=== PATIENT | female | born 1930 | race Caucasian/White ===

== ENCOUNTER 2018-11-03 18:57 | Inpatient (IN) | payer OTHER ==
--- NOTE | 2018-11-03 20:18 | PDOC ---
History of Present Illness - General Chief Complaint: Chest Pain Stated Complaint: CHEST PAIN Time Seen by Provider: 11/03/18 19:38 - History of Present Illness Initial Comments: 11/03/18 21:49 88f with htn, arthritis and hld presenting with severe chest pain with radiation to the back between the shoulder blades that came suddenly while she was at home. Occasionally the pain makes it harder to breathe. Had similar symptoms in the past, had a negative cardiac workup: - deconditioned stress MIBI 02/01: poor exercise tolerance--walked [id number] on [employer]; no ischemia or injury) Stress Persantine MIBI 03/2011 (at [facility]): no myocardial ischemia; normal LVEF and wall motion by gated studies. She denies fever chills abdominal pain or dysuria. Denies active cancer, recent travel or hemoptysis. Did notice swelling of the right leg worse than the left, unsure when that appeared. 11/03/18 22:44 Past History - Past Medical History Allergies/Adverse Reactions: Allergies Allergy/AdvReac Type Severity Reaction Status Date / Time Penicillins Allergy Severe Difficulty Verified 01/15/16 00:52 Breathing Home Medications: Ambulatory Orders Amlodipine Besylate [Norvasc -] 2.5 mg PO DAILY 01/15/16 Lansoprazole [Prevacid] 30 mg PO DAILY 01/15/16 Lisinopril [Prinivil -] 40 mg PO DAILY 01/15/16 Metoprolol Succinate [Toprol Xl] 50 mg PO DAILY 01/15/16 Tramadol HCl 50 mg PO BID 01/15/16 Cardiac Disorders: Yes CHF: Yes (systolic and diastolic dysfuction) GI Disorders: Yes (GASTRITIS. HERNIA.) HTN: Yes - Family Disease History Family Disease History: Heart Disease: Mother (hypertension) - Immunization History Immunization Up to Date: Yes - Suicide/Smoking/Psychosocial Hx Smoking Status: No Smoking History: Never smoked Have you smoked in the past 12 months: No Number of Cigarettes Smoked Daily: 0 Hx Alcohol Use: No Drug/Substance Use Hx: No Substance Use Type: None Hx Substance Use Treatment: No Review of Systems - Review of Systems Able to Perform ROS?: Yes Is the patient limited Martiniquais proficient: No Constitutional: No: Symptoms Reported HEENTM: No: Symptoms Reported Respiratory: Yes: See HPI Cardiac (ROS): Yes: See HPI ABD/GI: No: Symptoms Reported : No: Symptoms Reported Integumentary: No: Symptoms Reported Neurological: No: Symptoms reported All Other Systems: Reviewed and Negative *Physical Exam - Vital Signs Last Vital Signs Temp Pulse Resp BP Pulse Ox 98.7 F 59 L 19 182/69 H 98 11/03/18 19:05 11/03/18 19:05 11/03/18 19:05 11/03/18 19:05 11/03/18 19:05 - Physical Exam General Appearance: Yes: Appropriately Dressed, Mild Distress, Obese HEENT: positive: EOMI, MEEK, Normal ENT Inspection Respiratory/Chest: positive: Lungs Clear, Normal Breath Sounds. negative: Chest Tender, Respiratory Distress Cardiovascular: positive: Regular Rhythm, S1, S2, Bradycardia Gastrointestinal/Abdominal: positive: Normal Bowel Sounds, Soft, Protuberent. negative: Tender Extremity: positive: Pedal Edema (Worse swelling over right leg, tender throughout the leg) Integumentary: positive: Normal Color, Dry, Warm Neurologic: positive: Fully Oriented, Alert, Normal Mood/Affect, Normal Response , Motor Strength 5/5 Heart Score/ECG Review - History History: Moderately suspicious - Electrocardiogram EKG: Normal - Age Age: >/= 65 - Risk Factors Risk Factors Heart Score: Yes Hx Hypertension, Yes Positive family hx of cardiac disease, Yes Hx Obesity Based on the list above the patient has:: >/=3 risk factors or Hx atherosclerotic disease - Troponin Troponin: </= normal limit - Score Heart Score - Total: 5 ED Treatment Course - LABORATORY CBC & Chemistry Diagram: 11/03/18 20:35 11/03/18 20:35 Medical Decision Making - Medical Decision Making 11/03/18 22:43 88F with severe tearing chest pain radiating to back, sob on/off and right leg swelling. Will obtain immediate CTA chest and abd/pelvis to r/o dissection. In addition, suspicion for DVT/PE that will be excluded qwith the CTA chest and will get Duplex U/S of the right leg. Will obtain labs and cardiac trops as well to r/o CO. EKG: sinus bradycardia with marked sinus arrhytmia. Left axis deviation. Cannot r/o anterior infarct, age undertermines. Vent rate 59, OH 182, QRS 84 QT/QTC 422/417 CTA read: 1. Study negative for thoracic/abdominal aortic dissection or aneurysm. No abnormalities of the pelvic arterial vessels identified either. 2. No CT evidence for pulmonary embolism. 3. Colonic diverticulosis. No CT evidence of diverticulitis. 4. Degenerative disc disease and degenerative changes throughout the thoracic and lumbar spine All labs wnl, except bnp elevated at 660 Will control htn with labetalol 1. Study negative for thoracic/abdominal aortic dissection or aneurysm. No abnormalities of the pelvic arterial vessels identified either. 2. No CT evidence for pulmonary embolism. 3. Colonic diverticulosis. No CT evidence of diverticulitis. 4. Degenerative disc disease and degenerative changes throughout the thoracic and lumbar spine 11/03/18 22:52 DVT study Negative for DVT 11/03/18 23:57 Will control BP with labetalol Heart score of 5. Will admit to tele obs *DC/Admit/Observation/Transfer Diagnosis at time of Disposition: Chest pain, CHF (congestive heart failure), Right leg swelling - Discharge Dispostion Decision to Admit order: Yes - Referrals - Patient Instructions - Post Discharge Activity
[2018-11-03 21:08] LABS: MEAN PLT VOLUME 9.3 fl (7.5-11.1); RBC 3.41 M/mm3 (3.60-5.2)
[2018-11-03 21:13] LABS: BASO % 1.2 % (0-2.0); EOS % 1.3 % (0-4.5); HEMATOCRIT 28.5 % (32.4-45.2); HEMOGLOBIN 9.1 GM/dL (10.7-15.3); LYMPH % 35.2 % (8-40); MCH 26.8 pg (25.7-33.7); MCHC 32.1 g/dl (32.0-36.0); MEAN CELL VOLUME 83.6 fl (80-96); MONO % 8.4 % (3.8-10.2); NEUT % 53.9 % (42.8-82.8); PLATELET COUNT 182 K/MM3 (134-434); RDW 15.3 % (11.6-15.6); WHITE BLOOD COUNT 6.2 K/mm3 (4.0-10.0)
[2018-11-03 21:20] LABS: INR 0.98 (0.83-1.09); PROTHROMBIN TIME (PATIENT) 11.6 SEC (9.7-13.0)
[2018-11-03 21:23] LABS: ACTIVATED PTT 31.2 SECONDS (25.2-36.5)
[2018-11-03 21:30] LABS: BILIRUBIN,TOTAL 0.3 mg/dL (0.2-1); BLOOD UREA NITROGEN 18.3 mg/dL (7-18); CALCIUM 9.8 mg/dL (8.5-10.1); CREATININE 0.9 mg/dL (0.55-1.3); N-TERMINAL BNP 655.9 pg/ml (5-450); POTASSIUM 4.2 mmol/L (3.5-5.1); TOT PROT 8.1 g/dl (6.4-8.2)
[2018-11-03 21:54] LABS: EPI CELLS 2.8 /HPF (0-5/HPF); HYALINE CASTS 0 /lpf (0-8); PH,URINE 6.5 (5.0-8.0); URINE APPEARANCE CLEAR; URINE BACTERIA 24.2 /hpf (NEGATIVE); URINE BILIRUBIN NEGATIVE (NEGATIVE); URINE COLOR YELLOW; URINE GLUCOSE (UA) NEGATIVE (NEGATIVE); URINE KETONE NEGATIVE (NEGATIVE); URINE LEUK ESTERASE 2+ (NEGATIVE); URINE NITRITE NEGATIVE (NEGATIVE); URINE PROTEIN NEGATIVE (NEGATIVE); URINE RBC 1 /hpf (0-4); URINE UROBILINOGEN 0.2 mg/dL (0.2-1.0); URINE WBC 3 /hpf (0-5)
[2018-11-03] MEDS ORDERED: FUROSEMIDE 40 MG/4 ML INJECTABLE VIAL IVPUSH ONE (22:52)
[2018-11-03] MEDS ORDERED: FUROSEMIDE 40 MG/4 ML INJECTABLE VIAL ONE (22:54)
--- NOTE | 2018-11-03 22:58 | PDOC ---
Documentation entered by Maria E Ryan SCRIBE, acting as scribe for Roger Agarwal MD. Roger Agarwal MD: This documentation has been prepared by the Connor lehman Sammi, SCRIBE, under my direction and personally reviewed by me in its entirety. I confirm that the documentation accurately reflects all work, treatment, procedures, and medical decision making performed by me. Attending Attestation - Resident Resident Name: Vicente Saucedo - ED Attending Attestation I have performed the following: I have examined & evaluated the patient, The case was reviewed & discussed with the resident, I agree w/resident's findings & plan, Exceptions are as noted - HPI HPI: 11/03/18 22:58 88 F with h/o HTN, HLD, arthritis, presenting with sudden onset chest pain radiating to back. Pt states she was at rest when pain began. Denies exertional or pleuritic component to it. Pt also endorses BLE swelling. Denies h/o DVT/PE. Denies F/C/cough. - Physicial Exam PE: 11/03/18 22:58 "GENERAL: Awake, alert, and fully oriented, in no acute distress. HEAD: No signs of trauma EYES: PERRLA, EOMI, sclera anicteric, conjunctiva clear ENT: Auricles normal inspection, hearing grossly normal, nares patent, oropharynx clear without exudates. Moist mucosa NECK: Nontender, no stepoffs, Normal ROM, supple, no lymphadenopathy, JVD, or masses LUNGS: Breath sounds equal, clear to auscultation bilaterally. No wheezes, and no crackles HEART: Regular rate and rhythm, normal S1 and S2, no murmurs, rubs or gallops ABDOMEN: Soft, nontender, normoactive bowel sounds. No guarding, no rebound. No masses EXTREMITIES: + BLE edema, R>L, No clubbing or cyanosis. No cords, erythema, or tenderness NEUROLOGICAL: Cranial nerves II through XII intact. 5/5 strength and sensation in all extremities, Normal speech, normal gait, normal cerebellar function SKIN: Warm, Dry, normal turgor, no rashes or lesions noted. - Critical Care Time Total Critical Care Time: 60 Critical Care Statement: The care of this patient involved high complexity decision making to prevent further life threatening deterioration of the patient 's condition and/or to evaluate & treat vital organ system(s) failure or risk of failure. - Medical Decision Making 11/03/18 22:59 88 F with chest pain radiating to back. Found to be HTNsive in ED. Will r/o dissection. Pt also with asymmetric leg swelling, will need to evaluate for DVT/ PE. EKG with no ischemic changes to suggest ACS. - Labs, trop, BNP - CTA chest - RLE Doppler - BP control - Admit tele
[2018-11-03] MEDS ORDERED: LABETALOL HCL 5 MG/1 ML (100MG/20 ML VIAL) IVPUSH ONE (23:58)
[2018-11-04] MEDS ORDERED: PANTOPRAZOLE SODIUM 40 MG VIAL IVPUSH ONE (00:03)
[2018-11-04] MEDS ORDERED: LABETALOL HCL 5 MG/1 ML (200MG/40ML VIAL) IVPB ONE (00:29)
[2018-11-04] MEDS ORDERED: PANTOPRAZOLE SODIUM 40 MG/100 ML BAG IVPB ONE (00:49)
--- NOTE | 2018-11-04 01:48 | HP ---
CHIEF COMPLAINT: Upper back pain with sob PCP: Dr. Carter HISTORY OF PRESENT ILLNESS: 88 year old female with PMHx of HTN/HLD, Arthritis, arrived to ED for complain of upper back pain (around right shoulder blade) with occasional sob, pain present for 2 days as per patient took Tylenol with relief, also complains of B/L LE swelling. Denies headache dizziness, fever chills abdominal pain or dysuria. ER course was notable for: - deconditioned stress MIBI 02/01: poor exercise tolerance--walked [id number] on [employer]; no ischemia or injury) - Stress Persantine MIBI 03/2011 (at [facility]): no myocardial ischemia; normal LVEF and wall motion by gated studies. - trops, EKG negative, CTA and vascular US negative Recent Travel: No PAST MEDICAL HISTORY: HTN/HLD, Arthritis PAST SURGICAL HISTORY: denies Social History: Smoking:No Alcohol: No Drugs: No Family History: Mother: had HTN , Daughter: has HTN Allergies: Penicillins Allergy (Severe, Verified 01/15/16 00:52) Difficulty Breathing HOME MEDICATIONS: Home Medications Medication Instructions Recorded Amlodipine Besylate [Norvasc -] 2.5 mg PO DAILY 01/15/16 Lansoprazole [Prevacid] 30 mg PO DAILY 01/15/16 Lisinopril [Prinivil -] 40 mg PO DAILY 01/15/16 Metoprolol Succinate [Toprol Xl] 50 mg PO DAILY 01/15/16 Tramadol HCl 50 mg PO BID 01/15/16 REVIEW OF SYSTEMS CONSTITUTIONAL: Absent: fever, chills, diaphoresis, generalized weakness, malaise, loss of appetite, weight change HEENT: Absent: rhinorrhea, nasal congestion, throat pain, throat swelling, difficulty swallowing, mouth swelling, ear pain, eye pain, visual changes CARDIOVASCULAR: Absent: chest pain, syncope, palpitations, irregular heart rate , lightheadedness, peripheral edema RESPIRATORY: + shortness of breath; Absent: cough, dyspnea with exertion, orthopnea, wheezing, stridor, hemoptysis GASTROINTESTINAL: Absent: abdominal pain, abdominal distension, nausea, vomiting , diarrhea, constipation, melena, hematochezia GENITOURINARY: Absent: dysuria, frequency, urgency, hesitancy, hematuria, flank pain, genital pain MUSCULOSKELETAL: + upper back back between right shoulder blade SKIN: Absent: rash, itching, pallor NEUROLOGIC: Absent: headache, focal weakness or paresthesias, dizziness, unsteady gait, seizure, mental status changes, bladder or bowel incontinence PSYCHIATRIC: Absent: anxiety, depression, suicidal or homicidal ideation, hallucinations. PHYSICAL EXAMINATION Vital Signs - 24 hr 11/03/18 11/03/18 11/03/18 19:05 22:00 22:30 Temperature 98.7 F Pulse Rate 59 L Pulse Rate [ 72 Left Radial] Respiratory 19 20 Rate Blood Pressure 182/69 H Blood Pressure 198/95 H [Left Arm] Blood Pressure 180/70 H [Right Arm] O2 Sat by Pulse 98 96 100 Oximetry (%) 11/04/18 00:48 Temperature Pulse Rate Pulse Rate [ 60 Left Radial] Respiratory 16 Rate Blood Pressure Blood Pressure 172/77 H [Left Arm] Blood Pressure 197/71 H [Right Arm] O2 Sat by Pulse 97 Oximetry (%) GENERAL: Awake, alert, and fully oriented, in no acute distress. HEENT: NC/AT, EOMI, PERRLA, No JVD LUNGS: Breath sounds equal, clear to auscultation bilaterally. No wheezes, and no crackles. HEART: Regular rate and rhythm, normal S1 and S2 without murmur, rub or gallop. ABDOMEN: Soft, nontender, not distended, normoactive bowel sounds, no guarding, no rebound, no masses. MUSCULOSKELETAL: Normal range of motion at all joints. No bony deformities or tenderness. No CVA tenderness. Extremity: + 2 B/l LE NEUROLOGICAL: Cranial nerves II-XII intact. Normal speech. Normal gait. PSYCHIATRIC: Cooperative. Good eye contact. Appropriate mood and affect. SKIN: Warm, dry Laboratory Results - last 24 hr 11/03/18 11/03/18 11/03/18 20:35 20:35 20:35 WBC 6.2 RBC 3.41 L Hgb 9.1 L Hct 28.5 L MCV 83.6 MCH 26.8 D MCHC 32.1 RDW 15.3 Plt Count 182 MPV 9.3 Absolute Neuts (auto) 3.3 Neutrophils % 53.9 D Lymphocytes % 35.2 Monocytes % 8.4 Eosinophils % 1.3 Basophils % 1.2 Nucleated RBC % 0 PT with INR 11.60 INR 0.98 PTT (Actin FS) 31.2 Sodium Potassium Chloride Carbon Dioxide Anion Gap BUN Creatinine Est GFR (CKD-EPI)AfAm Est GFR (CKD-EPI)NonAf Random Glucose Lactic Acid Calcium Total Bilirubin AST ALT Alkaline Phosphatase Creatine Kinase 152 Creatine Kinase Index 1.2 CK-MB (CK-2) 1.9 Troponin I < 0.02 B-Natriuretic Peptide Total Protein Albumin Lipase Urine Color Urine Appearance Urine pH Ur Specific [place] Urine Protein Urine Glucose (UA) Urine Ketones Urine Blood Urine Nitrite Urine Bilirubin Urine Urobilinogen Ur Leukocyte Esterase Urine WBC (Auto) Urine RBC (Auto) Urine Casts (Auto) U Epithel Cells (Auto) Urine Bacteria (Auto) Blood Type Antibody Screen 11/03/18 11/03/18 11/03/18 20:35 20:35 21:00 WBC RBC Hgb Hct MCV MCH MCHC RDW Plt Count MPV Absolute Neuts (auto) Neutrophils % Lymphocytes % Monocytes % Eosinophils % Basophils % Nucleated RBC % PT with INR Cancelled INR Cancelled PTT (Actin FS) Sodium 139 Potassium 4.2 Chloride 105 Carbon Dioxide 29 Anion Gap 5 L BUN 18.3 H Creatinine 0.9 Est GFR (CKD-EPI)AfAm 67.10 Est GFR (CKD-EPI)NonAf 57.90 Random Glucose 101 Lactic Acid 1.2 Calcium 9.8 Total Bilirubin 0.3 AST 19 ALT 16 Alkaline Phosphatase 77 Creatine Kinase Creatine Kinase Index CK-MB (CK-2) Troponin I B-Natriuretic Peptide 655.9 H Total Protein 8.1 Albumin 4.0 Lipase 93 Urine Color Urine Appearance Urine pH Ur Specific [place] Urine Protein Urine Glucose (UA) Urine Ketones Urine Blood Urine Nitrite Urine Bilirubin Urine Urobilinogen Ur Leukocyte Esterase Urine WBC (Auto) Urine RBC (Auto) Urine Casts (Auto) U Epithel Cells (Auto) Urine Bacteria (Auto) Blood Type Antibody Screen 11/03/18 11/03/18 11/03/18 21:00 21:20 21:20 WBC RBC Hgb Hct MCV MCH MCHC RDW Plt Count MPV Absolute Neuts (auto) Neutrophils % Lymphocytes % Monocytes % Eosinophils % Basophils % Nucleated RBC % PT with INR INR PTT (Actin FS) Sodium Potassium Chloride Carbon Dioxide Anion Gap BUN Creatinine Est GFR (CKD-EPI)AfAm Est GFR (CKD-EPI)NonAf Random Glucose Lactic Acid Calcium Total Bilirubin AST ALT Alkaline Phosphatase Creatine Kinase Creatine Kinase Index CK-MB (CK-2) Troponin I B-Natriuretic Peptide Total Protein Albumin Lipase Urine Color Yellow Urine Appearance Clear Urine pH 6.5 Ur Specific [place] 1.006 L Urine Protein Negative Urine Glucose (UA) Negative Urine Ketones Negative Urine Blood Negative Urine Nitrite Negative Urine Bilirubin Negative Urine Urobilinogen 0.2 Ur Leukocyte Esterase 2+ H Urine WBC (Auto) 3 Urine RBC (Auto) 1 Urine Casts (Auto) 0 U Epithel Cells (Auto) 2.8 Urine Bacteria (Auto) 24.2 Blood Type O POSITIVE Cancelled Antibody Screen Negative Cancelled ASSESSMENT/PLAN: 88 year old female with PMHx of HTN/HLD, Arthritis, arrived to ED with complain of upper back pain (around right shoulder blade) with occasional sob, pain present for 2 days as per patient takes Tylenol with relief, also complains of B/L LE swelling. In ED noted with elevated BP left arm ( 172/77) right arm ( 197 /71) given labetalol and lasix x1 # CP with SOB # HTN -EKG: sinus bradycardia with marked sinus arrhytmia -trop: negative, BNP: unimpressive -CTA chest: negative for PE -RLE Doppler: negative for DVT In ED given Labetalol 20 mg, and lasix 40 mg IV push x1 - Continue with Norvasc 2.5 mg po daily - Continue with Prinivil 40 mg po daily - Continue with Metoprolol 50 mg po daily - cardiology follow up #GERD - continue with Prevacid 30 mg daily # Arthritis - Continue with Tramadol HCL 50 mg BID Problem List - Problem (1) Chest pain Code(s): R07.9 - CHEST PAIN, UNSPECIFIED (2) HTN (hypertension), benign Code(s): I10 - ESSENTIAL (PRIMARY) HYPERTENSION (3) HLD (hyperlipidemia) Code(s): E78.5 - HYPERLIPIDEMIA, UNSPECIFIED (4) Arthritis Code(s): M19.90 - UNSPECIFIED OSTEOARTHRITIS, UNSPECIFIED SITE (5) GERD (gastroesophageal reflux disease) Code(s): K21.9 - GASTRO-ESOPHAGEAL REFLUX DISEASE WITHOUT ESOPHAGITIS Visit type - Emergency Visit Emergency Visit: Yes ED Registration Date: 11/03/18 Care time: The patient presented to the Emergency Department on the above date and was hospitalized for further evaluation of their emergent condition. - New Patient This patient is new to me today: Yes Date on this admission: 11/04/18 - Critical Care Critical Care patient: No
--- NOTE | 2018-11-04 09:26 | CON.CARD ---
Consult Consult Specialty:: Cardiology - History of Present Illness History of Present Illness: 88 year old female with PMHx of HTN/HLD, Arthritis, arrived to ED for complain of upper back pain (around right shoulder blade) with occasional sob, pain present for 2 days as per patient took Tylenol with relief, also complains of B /L LE swelling. Denies headache dizziness, fever chills abdominal pain or dysuria. - History Source History Provided By: Patient, Medical Record - Past Medical History Cardio/Vascular: Yes: HTN - Alcohol/Substance Use Hx Alcohol Use: No - Smoking History Smoking history: Never smoked Have you smoked in the past 12 months: No Aproximately how many cigarettes per day: 0 Home Medications - Allergies Allergies/Adverse Reactions: Allergies Allergy/AdvReac Type Severity Reaction Status Date / Time Penicillins Allergy Severe Difficulty Verified 01/15/16 00:52 Breathing - Home Medications Home Medications: Ambulatory Orders Amlodipine Besylate [Norvasc -] 2.5 mg PO DAILY 01/15/16 Lansoprazole [Prevacid] 30 mg PO DAILY 01/15/16 Lisinopril [Prinivil -] 40 mg PO DAILY 01/15/16 Metoprolol Succinate [Toprol Xl] 50 mg PO DAILY 01/15/16 Tramadol HCl 50 mg PO BID 01/15/16 Review of Systems - Review of Systems Constitutional: reports: No Symptoms Eyes: reports: No Symptoms HENT: reports: No Symptoms Neck: reports: No Symptoms Cardiovascular: reports: Edema, Shortness of Breath Respiratory: reports: SOB Gastrointestinal: reports: No Symptoms Genitourinary: reports: No Symptoms Breasts: reports: No Symptoms Reported Musculoskeletal: reports: No Symptoms Integumentary: reports: No Symptoms Neurological: reports: No Symptoms Endocrine: reports: No Symptoms Hematology/Lymphatic: reports: No Symptoms Psychiatric: reports: No Symptoms Vital Signs: Vital Signs Temperature 98 F 11/04/18 09:00 Pulse Rate 60 11/04/18 09:00 Respiratory Rate 18 11/04/18 09:00 Blood Pressure 162/69 11/04/18 09:00 O2 Sat by Pulse Oximetry (%) 100 11/04/18 09:00 Constitutional: Yes: Well Nourished, No Distress, Calm Eyes: Yes: WNL, Conjunctiva Clear, EOM Intact HENT: Yes: WNL, Atraumatic, Normocephalic Neck: Yes: WNL, Supple, Trachea Midline Respiratory: Yes: WNL, Regular, CTA Bilaterally Gastrointestinal: Yes: WNL, Normal Bowel Sounds Renal/: Yes: WNL Cardiovascular: Yes: WNL, Regular Rate and Rhythm Musculoskeletal: Yes: WNL Extremities: Yes: WNL Edema: Yes Edema: LLE: Trace, RLE: Trace Integumentary: Yes: WNL Neurological: Yes: WNL, Alert, Oriented ...Motor Strength: WNL Psychiatric: Yes: WNL, Alert, Oriented - Other Data Labs, Other Data: CBC, BMP 11/03/18 20:35 11/03/18 20:35 INR, PTT INR 0.98 (0.83-1.09) 11/03/18 20:35 Troponin, BNP 11/03/18 11/03/18 20:35 20:35 Troponin I < 0.02 B-Natriuretic Peptide 655.9 H Troponin, BNP 11/03/18 11/03/18 20:35 20:35 Troponin I < 0.02 B-Natriuretic Peptide 655.9 H Imaging - Results Chest X-ray: Pending EKG: Image Reviewed (s dayami s arhythmia) Problem List - Problems (1) Arthritis Code(s): M19.90 - UNSPECIFIED OSTEOARTHRITIS, UNSPECIFIED SITE (2) CHF (congestive heart failure) Code(s): I50.9 - HEART FAILURE, UNSPECIFIED (3) Chest pain Code(s): R07.9 - CHEST PAIN, UNSPECIFIED (4) GERD (gastroesophageal reflux disease) Code(s): K21.9 - GASTRO-ESOPHAGEAL REFLUX DISEASE WITHOUT ESOPHAGITIS (5) HLD (hyperlipidemia) Code(s): E78.5 - HYPERLIPIDEMIA, UNSPECIFIED (6) Right leg swelling Code(s): M79.89 - OTHER SPECIFIED SOFT TISSUE DISORDERS (7) DVT prophylaxis Code(s): [id number] - (8) Gastritis Code(s): K29.70 - GASTRITIS, UNSPECIFIED, WITHOUT BLEEDING (9) Callus of foot Code(s): L84 - CORNS AND CALLOSITIES (10) HTN (hypertension), benign Code(s): I10 - ESSENTIAL (PRIMARY) HYPERTENSION Assessment/Plan HTN/HLD, Arthritis, arrived to ED for complain of upper back pain (around right shoulder blade) with occasional sob, chf anemia cta neg for pe dissection Plan r/o mi echo iv lasix stress test if not done recently in the office
[2018-11-04] MEDS ORDERED: traMADol HCL 50 MG TABLET ONE (10:44)
[2018-11-04] MEDS: HEPARIN NA (PORCINE) 5,000 UNITS/ML 1ML VIAL SQ SCH ×2 (11:00→22:19)
[2018-11-04] MEDS: PANTOPRAZOLE 40 MG TABLET (FP) PO SCH (11:02)
[2018-11-04] MEDS: LISINOPRIL 20 MG TABLET (FP) PO SCH (11:02)
[2018-11-04] MEDS: amLODIPine BESYLATE 2.5 MG TABLET (FP) PO SCH (11:02)
[2018-11-04] MEDS: traMADol HCL 50 MG TABLET PO SCH ×2 (11:08→22:17)
--- NOTE | 2018-11-04 11:10 | EKG ---
Test Reason : Blood Pressure : / mmHG Vent. Rate : 059 BPM Atrial Rate : 059 BPM P-R Int : 182 ms QRS Dur : 084 ms QT Int : 422 ms P-R-T Axes : 051 -34 030 degrees QTc Int : 417 ms SINUS BRADYCARDIA WITH MARKED SINUS ARRHYTHMIA LEFT AXIS DEVIATION WHEN COMPARED WITH ECG OF 15-JAN-2016 04:17, NO SIGNIFICANT CHANGE WAS FOUND Confirmed by RUDY TRAYLOR MD ([id number]) on 11/04/2018 11:09:28 AM Referred By: Confirmed By:RUDY TRAYLOR MD
--- NOTE | 2018-11-04 14:23 | PN ---
Progress Note, Physician Chief Complaint: came in for chest discomfort - Current Medication List Current Medications: Active Medications Amlodipine Besylate (Norvasc -) 2.5 mg PO DAILY [facility] Last Admin: 11/04/18 11:02 Dose: 2.5 mg Furosemide (Lasix Injection -) 40 mg IVPUSH DAILY [facility] Heparin Sodium (Porcine) (Heparin -) 5,000 unit SQ BID [facility] Last Admin: 11/04/18 11:00 Dose: 5,000 unit Lisinopril (Prinivil) 40 mg PO DAILY [facility] Last Admin: 11/04/18 11:02 Dose: 40 mg Metoprolol Succinate (Toprol Xl -) 50 mg PO DAILY [facility] Last Admin: 11/04/18 11:02 Dose: 50 mg Pantoprazole Sodium (Protonix -) 40 mg PO DAILY [facility] Last Admin: 11/04/18 11:02 Dose: 40 mg Tramadol HCl (Ultram -) 50 mg PO BID [facility] Last Admin: 11/04/18 11:08 Dose: 50 mg - Objective Vital Signs: Vital Signs Temperature 97.8 F 11/04/18 11:00 Pulse Rate 73 11/04/18 11:00 Respiratory Rate 16 11/04/18 11:00 Blood Pressure 154/65 11/04/18 11:00 O2 Sat by Pulse Oximetry (%) 100 11/04/18 11:00 Constitutional: Yes: Calm Cardiovascular: Yes: Regular Rate and Rhythm, S1, S2 Respiratory: Yes: CTA Bilaterally Gastrointestinal: Yes: Normal Bowel Sounds, Soft Neurological: Yes: Alert Labs: CBC, BMP 11/03/18 20:35 11/03/18 20:35 INR, PTT INR 0.98 (0.83-1.09) 11/03/18 20:35 Problem List - Problems (1) CHF (congestive heart failure) Assessment/Plan: iv lasix echo Code(s): I50.9 - HEART FAILURE, UNSPECIFIED (2) Chest pain Assessment/Plan: trend troponin echo may get stress test lipid panel Code(s): R07.9 - CHEST PAIN, UNSPECIFIED
[2018-11-04] MEDS ORDERED: FUROSEMIDE 40 MG/4 ML INJECTABLE VIAL ONE (14:37)
[2018-11-04] MEDS: FUROSEMIDE 40 MG/4 ML INJECTABLE VIAL IVPUSH SCH (15:16)
--- NOTE | 2018-11-04 15:28 | ECHO ---
Name: CHELLYALAYNA Exam:Adult Echocardiogram Study Date: 11/04/2018 02:25 PM Age: 88 yrs Reason For Study: ef/chf Height: 62 in Weight: 180 lb BSA: 1.8 m2 MMode/2D Measurements & Calculations IVSd: 0.87 cm Ao root diam: 3.0 cm LVIDd: 4.1 cm LA dimension: 3.4 cm LVIDs: 2.6 cm LVPWd: 1.2 cm LVPWs: 1.2 cm EDV(Teich): 74.8 ml ESV(Teich): 24.8 ml LVOT diam: 1.9 cm RV S Karthikeyan: 13.6 cm/sec Doppler Measurements & Calculations MV E max karthikeyan: 81.0 cm/sec Ao V2 max: 194.1 cm/sec MV A max karthikeyan: 112.5 cm/sec Ao max P.1 mmHg MV E/A: 0.72 Ao V2 mean: 126.0 cm/sec MV dec time: 0.27 sec Ao mean P.4 mmHg Ao V2 VTI: 37.6 cm HAFSA(I,D): 2.3 cm2 HAFSA(V,D): 1.9 cm2 LV V1 max P.5 mmHg SV(LVOT): 86.1 ml LV V1 mean P.9 mmHg LV V1 max: 136.8 cm/sec LV V1 mean: 91.1 cm/sec LV V1 VTI: 31.4 cm TR max karthikeyan: 267.0 cm/sec PA V2 max: 95.0 cm/sec TR max P.5 mmHg PA max P.6 mmHg Med Peak E' Karthikeyan: 4.7 cm/sec Med E/e': 17.3 Lat Peak E' Karthikeyan: 6.5 cm/sec Lat E/e': 12.4 Procedure A complete two-dimensional transthoracic echocardiogram was performed (2D, M-mode, Doppler and color flow Doppler). Left Ventricle The left ventricle is normal in size. Left ventricular systolic function is normal. Ejection Fraction = 65- 70%. Diastolic dysfunction, Grade II, consistent with elevated left atrial pressure. Ratio E/E'= 17. No regional wall motion abnormalities noted. Right Ventricle The right ventricle is normal size. The right ventricular systolic function is normal. RV systolic TD I is 14 cm/s. Atria The left atrial size is normal. Right atrial size is normal. Mitral Valve The mitral valve is normal in structure and function. There is mild mitral regurgitation. Tricuspid Valve The tricuspid valve is normal in structure and function. There is mild to moderate tricuspid regurgit ation. Pulmonary artery systolic pressure is at least 33 mmHg if RA pressure is assumed 3 mmHg. Aortic Valve The aortic valve is normal in structure and function. No aortic regurgitation is present. Pulmonic Valve The pulmonic valve is not well visualized. Great Vessels The aortic root is normal size. Pericardium/Pleura There is no pericardial effusion. Interpretation Summary The left ventricle is normal in size. Left ventricular systolic function is normal. No regional wall motion abnormalities noted. Ejection Fraction = 65-70%. Diastolic dysfunction, Grade II, consistent with elevated left atrial pressure. Ratio E/E'= 17 The right ventricular systolic function is normal. The left atrial size is normal. Right atrial size is normal. There is mild mitral regurgitation. There is mild to moderate tricuspid regurgitation. Pulmonary artery systolic pressure is at least 33 mmHg if RA pressure is assumed 3 mmHg There is no pericardial effusion. Previous study is not available for comparison Robby Diamond MD 11/04/2018 03:27 PM
[2018-11-04 21:35] VITALS: BMI 32.3
[2018-11-05 06:50] LABS: HEMATOCRIT 26.5 % (32.4-45.2); HEMOGLOBIN 8.6 GM/dL (10.7-15.3); LYMPH % 36.7 % (8-40); MCHC 32.5 g/dl (32.0-36.0); MEAN PLT VOLUME 9.4 fl (7.5-11.1); MONO % 14.7 % (3.8-10.2); NEUT % 42.6 % (42.8-82.8); PLATELET COUNT 168 K/MM3 (134-434); RBC 3.19 M/mm3 (3.60-5.2); RDW 15.5 % (11.6-15.6); WHITE BLOOD COUNT 4.8 K/mm3 (4.0-10.0)
[2018-11-05 07:20] LABS: ALBUMIN 3.4 g/dl (3.4-5.0); BILIRUBIN,TOTAL 0.4 mg/dL (0.2-1); BLOOD UREA NITROGEN 23.6 mg/dL (7-18); CALCIUM 8.9 mg/dL (8.5-10.1); CREATININE 1.1 mg/dL (0.55-1.3); POTASSIUM 3.9 mmol/L (3.5-5.1); TOT PROT 7.2 g/dl (6.4-8.2)
--- NOTE | 2018-11-05 09:06 | PN ---
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 Pt has no back pain since receiving medication. History of Present Illness: 88 woman with h/o diastolic CHF, HTN, HLD, arthritis, overweight, anxiety, now presenting with sudden onset stabbing back pain (central, interscapular; lasts a few seconds) .. Pt states she was at rest when pain began. She has had similar episodes a few times over the past several weeks. Denies chest pain. Denies exertional or pleuritic component to it. Pt also endorses BLE swelling. Denies h/o DVT/PE. Denies F/C/cough. - Current Medication List Current Medications: Active Medications Amlodipine Besylate (Norvasc -) 2.5 mg PO DAILY [facility] Last Admin: 11/05/18 09:12 Dose: 2.5 mg Furosemide (Lasix Injection -) 40 mg IVPUSH DAILY [facility] Last Admin: 11/05/18 09:13 Dose: 40 mg Heparin Sodium (Porcine) (Heparin -) 5,000 unit SQ BID [facility] Last Admin: 11/05/18 09:14 Dose: 5,000 unit Lidocaine (Lidoderm Patch -) 1 patch TP DAILY [facility] Lisinopril (Prinivil) 40 mg PO DAILY [facility] Last Admin: 11/05/18 09:13 Dose: 40 mg Metoprolol Succinate (Toprol Xl -) 50 mg PO DAILY [facility] Last Admin: 11/05/18 09:12 Dose: 50 mg Miscellaneous (Lidoderm Patch Removal) 1 each MC DAILY@2200 [facility] Pantoprazole Sodium (Protonix -) 40 mg PO DAILY [facility] Last Admin: 11/05/18 09:12 Dose: 40 mg Tramadol HCl (Ultram -) 50 mg PO BID [facility] Last Admin: 11/05/18 09:12 Dose: 50 mg - Objective Vital Signs: Vital Signs Temperature 97.9 F 11/05/18 06:00 Pulse Rate 72 11/05/18 06:00 Respiratory Rate 20 11/05/18 06:00 Blood Pressure 145/54 L 11/05/18 06:00 O2 Sat by Pulse Oximetry (%) 91 L 11/04/18 21:01 Constitutional: Yes: Anxious, Obese Eyes: Yes: WNL HENT: Yes: WNL Neck: Yes: WNL Cardiovascular: Yes: Regular Rate and Rhythm, S1, S2 Respiratory: Yes: WNL Gastrointestinal: Yes: Soft, Abdomen, Obese ...Rectal Exam: Yes: Deferred Genitourinary: No: Anuria Breast(s): Yes: WNL Musculoskeletal: Yes: Back Pain, Joint Stiffness, Muscle Weakness Edema: No Peripheral Pulses WNL: Yes Integumentary: Yes: WNL Neurological: Yes: Alert, Oriented, Unsteady Gait, Weakness Psychiatric: Yes: WNL Labs: CBC, BMP 11/05/18 05:55 11/05/18 05:55 INR, PTT INR 0.98 (0.83-1.09) 11/03/18 20:35 Abnormal Lab Results 11/05/18 11/05/18 11/05/18 05:55 05:55 05:55 RBC 3.19 L Hgb 8.6 L Hct 26.5 L Neutrophils % 42.6 L D Monocytes % 14.7 H Eosinophils % 5.0 H D Anion Gap 7 L BUN 23.6 H Iron 24 L Iron Saturation 6 L Unsaturated IBC 362 H Ferritin 7.7 L HDL Cholesterol 82 H - ....Imaging Chest X-ray: Image Reviewed EKG: Image Reviewed (NSR; no acute changes) <Cb Orozco - Last Filed: 11/05/18 12:19> - Current Medication List Current Medications: Active Medications Amlodipine Besylate (Norvasc -) 2.5 mg PO DAILY [facility] Last Admin: 11/04/18 11:02 Dose: 2.5 mg Furosemide (Lasix Injection -) 40 mg IVPUSH DAILY [facility] Last Admin: 11/04/18 15:16 Dose: 40 mg Heparin Sodium (Porcine) (Heparin -) 5,000 unit SQ BID [facility] Last Admin: 11/04/18 22:19 Dose: 5,000 unit Lisinopril (Prinivil) 40 mg PO DAILY [facility] Last Admin: 11/04/18 11:02 Dose: 40 mg Metoprolol Succinate (Toprol Xl -) 50 mg PO DAILY [facility] Last Admin: 11/04/18 11:02 Dose: 50 mg Pantoprazole Sodium (Protonix -) 40 mg PO DAILY [facility] Last Admin: 11/04/18 11:02 Dose: 40 mg Tramadol HCl (Ultram -) 50 mg PO BID [facility] Last Admin: 11/04/18 22:17 Dose: 50 mg - Objective Vital Signs: Vital Signs Temperature 97.9 F 11/05/18 06:00 Pulse Rate 72 11/05/18 06:00 Respiratory Rate 20 11/05/18 06:00 Blood Pressure 145/54 L 11/05/18 06:00 O2 Sat by Pulse Oximetry (%) 91 L 11/04/18 21:01 Cardiovascular: Yes: Regular Rate and Rhythm, S1, S2 Gastrointestinal: Yes: Soft, Abdomen, Obese Labs: CBC, BMP 11/05/18 05:55 11/05/18 05:55 INR, PTT INR 0.98 (0.83-1.09) 11/03/18 20:35 <Katlyn Granados - Last Filed: 11/06/18 10:15> Problem List - Problems (1) Anxiety Code(s): F41.9 - ANXIETY DISORDER, UNSPECIFIED (2) Obesity (BMI 30.0-34.9) Code(s): E66.9 - OBESITY, UNSPECIFIED (3) Arthritis Code(s): M19.90 - UNSPECIFIED OSTEOARTHRITIS, UNSPECIFIED SITE (4) Back pain Code(s): M54.9 - DORSALGIA, UNSPECIFIED (5) HLD (hyperlipidemia) Code(s): E78.5 - HYPERLIPIDEMIA, UNSPECIFIED <Cb Orozco - Last Filed: 11/05/18 12:19> - Problems (1) CHF (congestive heart failure) Assessment/Plan: -trop: negative -CTA chest: negative for PE -RLE Doppler: negative for DVT -on iv lasix - Continue with Norvasc 2.5 mg po daily - Continue with Prinivil 40 mg po daily - Continue with Metoprolol 50 mg po daily - cardiology follow up Code(s): I50.9 - HEART FAILURE, UNSPECIFIED (2) Back pain Assessment/Plan: xray thoracic spine lidoderm patch Code(s): M54.9 - DORSALGIA, UNSPECIFIED (3) Chest pain Assessment/Plan: resolved see above Code(s): R07.9 - CHEST PAIN, UNSPECIFIED (4) HTN (hypertension), benign Assessment/Plan: Selected Entries 11/05/18 11/05/18 02:00 06:00 Blood Pressure 149/79 145/54 L monitor Code(s): I10 - ESSENTIAL (PRIMARY) HYPERTENSION <Katlyn Granados - Last Filed: 11/06/18 10:15>
[2018-11-05] MEDS: traMADol HCL 50 MG TABLET PO SCH ×2 (09:12→21:29)
[2018-11-05] MEDS: PANTOPRAZOLE 40 MG TABLET (FP) PO SCH (09:12)
[2018-11-05] MEDS: amLODIPine BESYLATE 2.5 MG TABLET (FP) PO SCH (09:12)
[2018-11-05] MEDS: LISINOPRIL 20 MG TABLET (FP) PO SCH (09:13)
[2018-11-05] MEDS: FUROSEMIDE 40 MG/4 ML INJECTABLE VIAL IVPUSH SCH (09:13)
[2018-11-05] MEDS: HEPARIN NA (PORCINE) 5,000 UNITS/ML 1ML VIAL SQ SCH ×2 (09:14→21:46)
[2018-11-05] MEDS: LIDOCAINE 5% TOPICAL PATCH TP SCH (10:00)
--- NOTE | 2018-11-05 11:26 | EKG ---
Test Reason : Blood Pressure : / mmHG Vent. Rate : 057 BPM Atrial Rate : 057 BPM P-R Int : 182 ms QRS Dur : 090 ms QT Int : 456 ms P-R-T Axes : 045 -50 034 degrees QTc Int : 443 ms SINUS BRADYCARDIA WITH PREMATURE ATRIAL COMPLEXES LEFT ANTERIOR FASCICULAR BLOCK NONSPECIFIC T WAVE ABNORMALITY ABNORMAL ECG Confirmed by Lester Borden MD ([id number]) on 11/05/2018 11:26:34 AM Referred By: LUCERO DUARTE Confirmed By:Lester Borden MD
--- NOTE | 2018-11-05 11:46 | PN ---
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 Pt has no back pain since receiving medication today (Ultram). History of Present Illness: 88 F with h/o diastolic CHF, HTN, HLD, overweight, arthritis, anxiety, now presenting with sudden onset chest pain radiating to back. Pt states she was at rest when pain began. Denies exertional or pleuritic component to it. Pt also endorses BLE swelling. Denies h/o DVT/PE. Denies F/C/cough. - Current Medication List Current Medications: Active Medications Amlodipine Besylate (Norvasc -) 2.5 mg PO DAILY [facility] Last Admin: 11/05/18 09:12 Dose: 2.5 mg Furosemide (Lasix Injection -) 40 mg IVPUSH DAILY [facility] Last Admin: 11/05/18 09:13 Dose: 40 mg Heparin Sodium (Porcine) (Heparin -) 5,000 unit SQ BID [facility] Last Admin: 11/05/18 09:14 Dose: 5,000 unit Lidocaine (Lidoderm Patch -) 1 patch TP DAILY [facility] Lisinopril (Prinivil) 40 mg PO DAILY [facility] Last Admin: 11/05/18 09:13 Dose: 40 mg Metoprolol Succinate (Toprol Xl -) 50 mg PO DAILY [facility] Last Admin: 11/05/18 09:12 Dose: 50 mg Miscellaneous (Lidoderm Patch Removal) 1 each MC DAILY@2200 [facility] Pantoprazole Sodium (Protonix -) 40 mg PO DAILY [facility] Last Admin: 11/05/18 09:12 Dose: 40 mg Tramadol HCl (Ultram -) 50 mg PO BID [facility] Last Admin: 11/05/18 09:12 Dose: 50 mg - Objective Vital Signs: Vital Signs Temperature 97.9 F 11/05/18 06:00 Pulse Rate 72 11/05/18 06:00 Respiratory Rate 20 11/05/18 06:00 Blood Pressure 145/54 L 11/05/18 06:00 O2 Sat by Pulse Oximetry (%) 91 L 11/04/18 21:01 Constitutional: Yes: Anxious Labs: CBC, BMP 11/05/18 05:55 11/05/18 05:55 INR, PTT INR 0.98 (0.83-1.09) 11/03/18 20:35 Problem List - Problems (1) Anemia Assessment/Plan: chronic anemia; followed by Dr. Brooks. F/u Hb, Fe Code(s): D64.9 - ANEMIA, UNSPECIFIED (2) Anxiety Code(s): F41.9 - ANXIETY DISORDER, UNSPECIFIED (3) Arthritis Code(s): M19.90 - UNSPECIFIED OSTEOARTHRITIS, UNSPECIFIED SITE (4) Back pain Assessment/Plan: Pt has had several episodes of stabbing upper-central back pain at rest, last a few seconds, for the past few weeks. She denies having had chest pain during these episodes or at any other time. ( For years, she has had exertional fatigue on walking more than a block; this has not changed appreciably. She has been offered cardiac stress test in the past, but deferred having it. Will continue to follow her as outpt, and plan for outpt stress MIBI if she agrees). CT chest and abdomen: no PE, no aortic dilatation/dissection; no acute bony pathology. ECHO: normal LVEF; no wall motion abnormalities noted; abnormal diastolic compliance. EKG: NSR; no acute ST-T changes. TNI: < 0.02 x 2. Recommend: Discussed pain management, physical therapy, and weight loss with her and her aide. From cardiac perspective, pt may be followed up as an outpatient. Code(s): M54.9 - DORSALGIA, UNSPECIFIED (5) GERD (gastroesophageal reflux disease) Code(s): K21.9 - GASTRO-ESOPHAGEAL REFLUX DISEASE WITHOUT ESOPHAGITIS (6) HLD (hyperlipidemia) Code(s): E78.5 - HYPERLIPIDEMIA, UNSPECIFIED (7) Obesity (BMI 30.0-34.9) Code(s): E66.9 - OBESITY, UNSPECIFIED (8) HTN (hypertension), benign Code(s): I10 - ESSENTIAL (PRIMARY) HYPERTENSION
--- NOTE | 2018-11-05 17:39 | CONSULT ---
Consult Consult Specialty:: Hematology oncology Referred by:: Dr. Arora Reason for Consultation:: Anemia - History Source History Provided By: Patient, Family Member, Medical Record - Past Medical History Cardio/Vascular: Yes: CHF, HTN, Hyperlipdemia Pulmonary: Yes: COPD ...: No Heme/Onc: Yes: Anemia Musculoskeletal: Yes: Chronic low back pain, Osteoarthritis - Past Surgical History Past Surgical History: Yes: None - Alcohol/Substance Use Hx Alcohol Use: No - Smoking History Smoking history: Never smoked Have you smoked in the past 12 months: No Aproximately how many cigarettes per day: 0 Home Medications - Allergies Allergies/Adverse Reactions: Allergies Allergy/AdvReac Type Severity Reaction Status Date / Time Penicillins Allergy Severe Difficulty Verified 01/15/16 00:52 Breathing - Home Medications Home Medications: Ambulatory Orders Amlodipine Besylate [Norvasc -] 2.5 mg PO DAILY 01/15/16 Lansoprazole [Prevacid] 30 mg PO DAILY 01/15/16 Lisinopril [Prinivil -] 40 mg PO DAILY 01/15/16 Metoprolol Succinate [Toprol Xl] 50 mg PO DAILY 01/15/16 Tramadol HCl 50 mg PO BID 01/15/16 Review of Systems - Review of Systems Constitutional: denies: Fever, Lethargy, Loss of Appetite, Night Sweats, Unintentional Wgt. Loss, Weakness Eyes: denies: Double Vision, Eye Pain HENT: denies: Difficult Swallowing, Epistaxis, Ringing in Ears Neck: denies: Stiffness, Swollen Glands Cardiovascular: reports: Shortness of Breath. denies: Chest Pain Respiratory: reports: SOB on Exertion Gastrointestinal: reports: Other (occasional reflux) Genitourinary: denies: Burning, Dysuria Breasts: reports: Other (mammography- negativein past) Musculoskeletal: reports: Back Pain, Decreased ROM, Extremity Pain Integumentary: denies: Eczema, Erythema Neurological: denies: Change in LOC, Dizziness, Numbness Endocrine: reports: No Symptoms. denies: Unexplained Weight Loss Hematology/Lymphatic: denies: Easily Bruised, Swollen Glands Physical Exam Vital Signs: Vital Signs Temperature 97.8 F 11/05/18 14:00 Pulse Rate 92 H 11/05/18 14:00 Respiratory Rate 20 11/05/18 14:00 Blood Pressure 170/54 L 11/05/18 14:00 O2 Sat by Pulse Oximetry (%) 97 11/05/18 09:00 Constitutional: Yes: No Distress Eyes: Yes: PERRL. No: Diplopia, Ptosis, Sclera Icterus, Other HENT: Yes: Normocephalic, Other (upper and lower dentures). No: Pharyngeal Erythema, Tonsillar Exudate Neck: Yes: Supple. No: Lymphadenopathy, Thyromegaly Cardiovascular: Yes: Regular Rate and Rhythm, Murmur Respiratory: Yes: Other (poor inspiratory effort) Gastrointestinal: No: Ascites, Distention, Hepatomegaly, Splenomegaly Renal/: No: CVA Tenderness - Left, CVA Tenderness - Right Breast(s): Yes: WNL, Left, Right Musculoskeletal: Yes: Back Pain Extremities: No: Calf Tenderness, Cool, Cyanosis Edema: No Integumentary: No: Bruising, Erythema, Jaundice Neurological: Yes: WNL ...Motor Strength: WNL Psychiatric: Yes: WNL Labs: CBC, BMP 11/05/18 05:55 11/05/18 05:55 Imaging - Results Cat Scan: Report Reviewed Problem List - Problems (1) Anemia Assessment/Plan: Iron studies with Fe++ 24; TIBC-- 386 ; % saturation -- 6% Ferritin - 7,7 Picture compatible with Fe++ deficiency Followed by Dr. Brooks Intolerant to oral iron - has received iron infusion therapy in past. States has had negative upper and lower endoscopy in past . Of interest - indices normal raising possibility of additional component to anemia in addition to iron deficiency but will order HbE, celiac screen. Code(s): D64.9 - ANEMIA, UNSPECIFIED Qualifiers: Anemia type: iron deficiency (2) Back pain Code(s): M54.9 - DORSALGIA, UNSPECIFIED (3) CHF (congestive heart failure) Code(s): I50.9 - HEART FAILURE, UNSPECIFIED
[2018-11-05] MEDS ORDERED: IRON SUCROSE INJECTION 200 MG in SODIUM CHLORIDE 90 ML IVPB ONE (17:51)
[2018-11-05] MEDS ORDERED: LIDOCAINE PATCH REMOVAL MC SCH (22:00)
[2018-11-06] MEDS ORDERED: ACETAMINOPHEN 325 MG TABLET (FP) PO PRN (02:26)
[2018-11-06 06:19] VITALS: TEMP 97.9
[2018-11-06 07:34] LABS: EOS % 5.7 % (0-4.5); HEMATOCRIT 26.3 % (32.4-45.2); HEMOGLOBIN 8.6 GM/dL (10.7-15.3); LYMPH % 37.2 % (8-40); MCHC 32.7 g/dl (32.0-36.0); MEAN CELL VOLUME 82.4 fl (80-96); MEAN PLT VOLUME 9.4 fl (7.5-11.1); MONO % 14.8 % (3.8-10.2); NEUT % 41.3 % (42.8-82.8); PLATELET COUNT 161 K/MM3 (134-434); RBC 3.19 M/mm3 (3.60-5.2); WHITE BLOOD COUNT 4.7 K/mm3 (4.0-10.0)
[2018-11-06 08:41] LABS: ALBUMIN 3.3 g/dl (3.4-5.0); BILIRUBIN,TOTAL 0.4 mg/dL (0.2-1); BLOOD UREA NITROGEN 22.6 mg/dL (7-18); CALCIUM 8.8 mg/dL (8.5-10.1); CREATININE 0.9 mg/dL (0.55-1.3); POTASSIUM 3.6 mmol/L (3.5-5.1); TOT PROT 7.1 g/dl (6.4-8.2)
[2018-11-06] MEDS: FUROSEMIDE 40 MG/4 ML INJECTABLE VIAL IVPUSH SCH (10:00)
[2018-11-06] MEDS: HEPARIN NA (PORCINE) 5,000 UNITS/ML 1ML VIAL SQ SCH (10:00)
--- NOTE | 2018-11-06 10:45 | DS ---
Physical Examination Vital Signs: Vital Signs Temperature 97.9 F 11/06/18 06:00 Pulse Rate 57 L 11/06/18 06:00 Respiratory Rate 20 11/06/18 06:00 Blood Pressure 149/68 11/06/18 06:00 O2 Sat by Pulse Oximetry (%) 97 11/05/18 21:00 Cardiovascular: Yes: Regular Rate and Rhythm Respiratory: Yes: Regular, CTA Bilaterally Gastrointestinal: Yes: Normal Bowel Sounds, Soft Labs: CBC, BMP 11/06/18 06:35 11/06/18 06:35 Discharge Summary Reason For Visit: SWELLING OF RIGHT LOWER EXTREMITY Current Active Problems Anemia (Acute) Anxiety (Acute) Arthritis (Acute) Back pain (Acute) CHF (congestive heart failure) (Acute) Chest pain (Acute) GERD (gastroesophageal reflux disease) (Acute) HLD (hyperlipidemia) (Acute) Obesity (BMI 30.0-34.9) (Acute) Right leg swelling (Acute) Hospital Course: - Problems (1) CHF (congestive heart failure) Assessment/Plan: -trop: negative -CTA chest: negative for PE -RLE Doppler: negative for DVT -on iv lasix - Continue with Norvasc 2.5 mg po daily - Continue with Prinivil 40 mg po daily - Continue with Metoprolol 50 mg po daily - cardiology follow up Code(s): I50.9 - HEART FAILURE, UNSPECIFIED (2) Back pain Assessment/Plan: improved xray thoracic spine lidoderm patch Code(s): M54.9 - DORSALGIA, UNSPECIFIED (3) Chest pain Assessment/Plan: resolved see above Code(s): R07.9 - CHEST PAIN, UNSPECIFIED (4) HTN (hypertension), benign Assessment/Plan: Selected Entries 11/05/18 11/05/18 02:00 06:00 Blood Pressure 149/79 145/54 L monitor Code(s): I10 - ESSENTIAL (PRIMARY) HYPERTENSION dc planning--home further follow up and testing as outpatient Condition: Improved - Instructions Diet, Activity, Other Instructions: see dr casillas in one week for blood test Referrals: Margarita Casillas MD [Staff Physician] - Remy Vegas MD [Staff Physician] - Regan Hernandez MD [Staff Physician] - Disposition: HOME - Home Medications Comprehensive Discharge Medication List: Ambulatory Orders Amlodipine Besylate [Norvasc -] 2.5 mg PO DAILY 01/15/16 Lansoprazole [Prevacid] 30 mg PO DAILY 01/15/16 Lisinopril [Prinivil -] 40 mg PO DAILY 01/15/16 Metoprolol Succinate [Toprol Xl] 50 mg PO DAILY 01/15/16 Tramadol HCl 50 mg PO BID 01/15/16 Furosemide [Lasix -] 40 mg PO DAILY #30 tablet 11/06/18 Levothyroxine [Synthroid -] 12.5 mcg PO DAILY@0700 #15 tablet 11/06/18 Lidocaine 5% Patch [Lidoderm -] 1 patch TP DAILY #30 patch 11/06/18
--- NOTE | 2018-11-06 10:49 | EKG ---
Test Reason : Blood Pressure : / mmHG Vent. Rate : 058 BPM Atrial Rate : 058 BPM P-R Int : 176 ms QRS Dur : 082 ms QT Int : 416 ms P-R-T Axes : 070 -43 028 degrees QTc Int : 408 ms SINUS BRADYCARDIA LEFT AXIS DEVIATION LOW VOLTAGE QRS CANNOT RULE OUT ANTERIOR INFARCT , AGE UNDETERMINED ABNORMAL ECG WHEN COMPARED WITH ECG OF 04-NOV-2018 13:21, PREMATURE ATRIAL COMPLEXES ARE NO LONGER PRESENT Confirmed by DANDRE ALARCON, LUCERO ([id number]) on 11/06/2018 10:48:58 AM Referred By: Confirmed By:LUCERO AMOS MD
--- NOTE | 2018-11-06 11:00 | PN ---
Progress Note, Physician History of Present Illness: 88 year old female with PMHx of HTN/HLD, Arthritis, arrived to ED for complain of upper back pain (around right shoulder blade) with occasional sob, pain present for 2 days as per patient took Tylenol with relief, also complains of B /L LE swelling. Denies headache dizziness, fever chills abdominal pain or dysuria. - Current Medication List Current Medications: Active Medications Acetaminophen (Tylenol -) 650 mg PO Q6H PRN PRN Reason: PAIN OR FEVER Amlodipine Besylate (Norvasc -) 2.5 mg PO DAILY [facility] Last Admin: 11/05/18 09:12 Dose: 2.5 mg Furosemide (Lasix -) 40 mg PO DAILY [facility] Levothyroxine Sodium (Synthroid -) 12.5 mcg PO DAILY@0700 [facility] Lidocaine (Lidoderm Patch -) 1 patch TP DAILY [facility] Last Admin: 11/05/18 10:00 Dose: 1 patch Lisinopril (Prinivil) 40 mg PO DAILY [facility] Last Admin: 11/05/18 09:13 Dose: 40 mg Metoprolol Succinate (Toprol Xl -) 50 mg PO DAILY [facility] Last Admin: 11/05/18 09:12 Dose: 50 mg Miscellaneous (Lidoderm Patch Removal) 1 each MC DAILY@2200 [facility] Last Admin: 11/05/18 21:31 Dose: 1 each Pantoprazole Sodium (Protonix -) 40 mg PO DAILY [facility] Last Admin: 11/05/18 09:12 Dose: 40 mg Tramadol HCl (Ultram -) 50 mg PO BID [facility] Last Admin: 11/05/18 21:29 Dose: 50 mg - Objective Vital Signs: Vital Signs Temperature 97.9 F 11/06/18 06:00 Pulse Rate 57 L 11/06/18 06:00 Respiratory Rate 20 11/06/18 06:00 Blood Pressure 149/68 11/06/18 06:00 O2 Sat by Pulse Oximetry (%) 97 11/05/18 21:00 Eyes: Yes: WNL, Conjunctiva Clear, EOM Intact HENT: Yes: WNL, Atraumatic, Normocephalic Neck: Yes: WNL, Supple, Trachea Midline Cardiovascular: Yes: WNL, Regular Rate and Rhythm Respiratory: Yes: WNL, Regular, CTA Bilaterally Gastrointestinal: Yes: WNL, Normal Bowel Sounds Genitourinary: Yes: WNL Musculoskeletal: Yes: WNL Extremities: Yes: WNL Edema: No Integumentary: Yes: WNL Neurological: Yes: WNL, Alert, Oriented ...Motor Strength: WNL Psychiatric: Yes: WNL Labs: CBC, BMP 11/06/18 06:35 11/06/18 06:35 INR, PTT INR 0.98 (0.83-1.09) 11/03/18 20:35 Problem List - Problems (1) Arthritis Code(s): M19.90 - UNSPECIFIED OSTEOARTHRITIS, UNSPECIFIED SITE (2) CHF (congestive heart failure) Code(s): I50.9 - HEART FAILURE, UNSPECIFIED (3) Chest pain Code(s): R07.9 - CHEST PAIN, UNSPECIFIED (4) GERD (gastroesophageal reflux disease) Code(s): K21.9 - GASTRO-ESOPHAGEAL REFLUX DISEASE WITHOUT ESOPHAGITIS (5) HLD (hyperlipidemia) Code(s): E78.5 - HYPERLIPIDEMIA, UNSPECIFIED (6) Right leg swelling Code(s): M79.89 - OTHER SPECIFIED SOFT TISSUE DISORDERS (7) DVT prophylaxis Code(s): [id number] - (8) Gastritis Code(s): K29.70 - GASTRITIS, UNSPECIFIED, WITHOUT BLEEDING (9) Callus of foot Code(s): L84 - CORNS AND CALLOSITIES (10) HTN (hypertension), benign Code(s): I10 - ESSENTIAL (PRIMARY) HYPERTENSION Assessment/Plan - Problems (1) Anemia Assessment/Plan: chronic anemia; followed by Dr. Brooks. F/u Hb, Fe Code(s): D64.9 - ANEMIA, UNSPECIFIED (2) Anxiety Code(s): F41.9 - ANXIETY DISORDER, UNSPECIFIED (3) Arthritis Code(s): M19.90 - UNSPECIFIED OSTEOARTHRITIS, UNSPECIFIED SITE (4) Back pain Assessment/Plan: Pt has had several episodes of stabbing upper-central back pain at rest, last a few seconds, for the past few weeks. She denies having had chest pain during these episodes or at any other time. ( For years, she has had exertional fatigue on walking more than a block; this has not changed appreciably. She has been offered cardiac stress test in the past, but deferred having it. Will continue to follow her as outpt, and plan for outpt stress MIBI if she agrees). CT chest and abdomen: no PE, no aortic dilatation/dissection; no acute bony pathology. ECHO: normal LVEF; no wall motion abnormalities noted; abnormal diastolic compliance. EKG: NSR; no acute ST-T changes. TNI: < 0.02 x 2. Recommend: Discussed pain management, physical therapy, and weight loss with her and her aide. From cardiac perspective, pt may be followed up as an outpatient. Code(s): M54.9 - DORSALGIA, UNSPECIFIED (5) GERD (gastroesophageal reflux disease) Code(s): K21.9 - GASTRO-ESOPHAGEAL REFLUX DISEASE WITHOUT ESOPHAGITIS (6) HLD (hyperlipidemia) Code(s): E78.5 - HYPERLIPIDEMIA, UNSPECIFIED (7) Obesity (BMI 30.0-34.9) Code(s): E66.9 - OBESITY, UNSPECIFIED (8) HTN (hypertension), benign Code(s): I10 - ESSENTIAL (PRIMARY) HYPERTENSION
[2018-11-06] MEDS: traMADol HCL 50 MG TABLET PO SCH (11:28)
[2018-11-06] MEDS: LISINOPRIL 20 MG TABLET (FP) PO SCH (11:28)
[2018-11-06] MEDS: LIDOCAINE 5% TOPICAL PATCH TP SCH (11:29)
[2018-11-06] MEDS: PANTOPRAZOLE 40 MG TABLET (FP) PO SCH (11:29)
[2018-11-06] MEDS: amLODIPine BESYLATE 2.5 MG TABLET (FP) PO SCH (11:29)
[2018-11-06 13:36] VITALS: BP 155/59; PULSE 62
[2018-11-07] MEDS ORDERED: LEVOTHYROXINE NA 25 MCG TABLET (FP) PO SCH (07:00)
[2018-11-07] MEDS ORDERED: FUROSEMIDE 40 MG TABLET (FP) PO SCH (10:00)
[2018-11-08 16:08] LABS: HGB SOLUBILITY Negative (Negative); Hgb C 0 % (0.0); Hgb F 0 % (0.0-2.0); Hgb S 0 % (0.0)
== END 2018-11-06 14:39 | disposition home or self-care (01) | DRG 552 ==
LOC: JER 18:57 → JERBED 23:59 → J4W 11-04 20:45 → OBSVTOIN 11-05 08:19
PROVIDERS: ADMIT Family Medicine; ATTEND Family Medicine
DX: M54.9 Dorsalgia, unspecified (principal); I50.42 Chronic combined systolic (congestive) and diastolic (congestive) heart failure; I11.0 Hypertensive heart disease with heart failure; E78.5 Hyperlipidemia, unspecified; M19.90 Unspecified osteoarthritis, unspecified site; K57.30 Diverticulosis of large intestine without perforation or abscess without bleeding; Z88.0 Allergy status to penicillin; K21.9 Gastro-esophageal reflux disease without esophagitis; K29.70 Gastritis, unspecified, without bleeding; L84 Corns and callosities; E66.9 Obesity, unspecified; Z68.32 Body mass index [BMI] 32.0-32.9, adult; D50.9 Iron deficiency anemia, unspecified; D64.9 Anemia, unspecified; M79.89 Other specified soft tissue disorders
CPT/HCPCS: 36415; 71275-TC; 72070-TC-FY; 74175-TC; 80053; 80061; 81003; 82550; 82553; 82607; 82728; 82746; 83021; 83540; 83550; 83605; 83690; 83721; 83880; 84443; 84484; 85025; 85610; 85660; 85730; 86850; 86900; 86901; 87077; 87086; 93005; 93010; 93306-TC; 93971-TC; 99285-25; G0378; J1644; J1756

== ENCOUNTER 2021-08-19 13:31 | Inpatient (IN) | payer OTHER ==
[2021-08-19 13:53] VITALS: BMI 35.2
[2021-08-19] MEDS ORDERED: SODIUM CHLORIDE 0.9% 500 ML INFUS.BAG IV ONE (13:57)
[2021-08-19 15:12] LABS: BASO % 1.5 % (0-2.0); EOS % 2.3 % (0-4.5); HEMATOCRIT 25.1 % (32.4-45.2); HEMOGLOBIN 7.8 GM/dL (10.7-15.3); LYMPH % 26.7 % (8-40); MCH 21.6 pg (25.7-33.7); MCHC 30.9 g/dl (32.0-36.0); MEAN CELL VOLUME 69.9 fl (80-96); MEAN PLT VOLUME 9.4 fl (7.5-11.1); MONO % 13.1 % (3.8-10.2); NEUT % 56.4 % (42.8-82.8); PLATELET COUNT 147 10^3/uL (134-434); RBC 3.59 M/mm3 (3.60-5.2); RDW 19.4 % (11.6-15.6); WHITE BLOOD COUNT 4.8 K/mm3 (4.0-10.0)
[2021-08-19 15:13] LABS: INR 1.01 (0.83-1.09); PROTHROMBIN TIME (PATIENT) 11.6 SEC (9.7-13.0)
[2021-08-19 15:16] LABS: ACTIVATED PTT 26.9 SECONDS (25.2-36.5)
[2021-08-19 15:46] LABS: ANISOCYTOSIS 2+; MACROCYTOSIS 0
[2021-08-19 16:37] LABS: CALCIUM 8.9 mg/dL (8.5-10.1)
[2021-08-19 16:38] LABS: ALBUMIN 3.5 g/dl (3.4-5.0); BLOOD UREA NITROGEN 18.4 mg/dL (7-18); MAGNESIUM 2.4 mg/dL (1.8-2.4)
[2021-08-19 16:41] LABS: CREATININE 0.8 mg/dL (0.55-1.3)
[2021-08-19 16:42] LABS: TOT PROT 7.1 g/dl (6.4-8.2)
[2021-08-19 16:43] LABS: BILIRUBIN,TOTAL 0.4 mg/dL (0.2-1)
[2021-08-19 17:01] LABS: EPI CELLS 9 /uL (0-25.1); HYALINE CASTS 0 /uL (0-3.1); PH,URINE 6.5 (5.0-8.0); URINE APPEARANCE CLEAR; URINE BACTERIA 185 /uL (0-1359); URINE BILIRUBIN NEGATIVE (NEGATIVE); URINE COLOR YELLOW; URINE GLUCOSE (UA) NEGATIVE (NEGATIVE); URINE KETONE NEGATIVE (NEGATIVE); URINE LEUK ESTERASE 1+ (NEGATIVE); URINE NITRITE NEGATIVE (NEGATIVE); URINE PROTEIN TRACE (NEGATIVE); URINE RBC 1 /uL (0-23.9); URINE UROBILINOGEN 0.2 mg/dL (0.2-1.0); URINE WBC 12 /uL (0-25.8)
[2021-08-19] MEDS ORDERED: CEFTRIAXONE 1,000 MG in DEXTROSE 5%-WATER - 50 ML IVPB ONE (17:07)
[2021-08-19] MEDS ORDERED: CEFTRIAXONE 1 GM/50 ML BAG ONE (19:27)
[2021-08-20] MEDS ORDERED: POLYETHYLENE GLYCOL (HEALTHYLAX) 3350 17 GM PACKET PO PRN (01:43)
[2021-08-20] MEDS ORDERED: ACETAMINOPHEN 325 MG TABLET (FP) PO PRN ×2 (01:43→04:26)
[2021-08-20] MEDS ORDERED: FUROSEMIDE 40 MG/4 ML INJECTABLE VIAL IVPUSH ONE (01:48)
[2021-08-20] MEDS ORDERED: traMADol HCL 50 MG TABLET PO PRN (01:55)
[2021-08-20] MEDS: LEVOTHYROXINE NA 25 MCG TABLET (FP) PO SCH (06:34)
[2021-08-20] MEDS ORDERED: LEVOTHYROXINE NA 25 MCG TABLET (FP) PO SCH (07:00)
[2021-08-20] MEDS: PANTOPRAZOLE 40 MG TABLET PO SCH (09:30)
[2021-08-20] MEDS: LIDOCAINE 5% TOPICAL PATCH TP SCH ×2 (09:30→09:38)
[2021-08-20] MEDS: LISINOPRIL 20 MG TABLET PO SCH (09:30)
[2021-08-20] MEDS: amLODIPine BESYLATE 2.5 MG TABLET (FP) PO SCH (09:30)
[2021-08-20 10:44] LABS: BASO % 1.6 % (0-2.0); EOS % 3.9 % (0-4.5); HEMATOCRIT 25.7 % (32.4-45.2); HEMOGLOBIN 7.9 GM/dL (10.7-15.3); LYMPH % 27.8 % (8-40); MCH 21.5 pg (25.7-33.7); MCHC 30.6 g/dl (32.0-36.0); MEAN CELL VOLUME 70.2 fl (80-96); MEAN PLT VOLUME 9.5 fl (7.5-11.1); MONO % 14.1 % (3.8-10.2); NEUT % 52.6 % (42.8-82.8); PLATELET COUNT 147 10^3/uL (134-434); RBC 3.67 M/mm3 (3.60-5.2); WHITE BLOOD COUNT 5.3 K/mm3 (4.0-10.0)
[2021-08-20 11:05] LABS: BLOOD UREA NITROGEN 18.6 mg/dL (7-18)
[2021-08-20 11:10] LABS: CREATININE 1.1 mg/dL (0.55-1.3)
[2021-08-20] MEDS ORDERED: cefTRIAXone SODIUM 1 GM VIAL ONE (17:10)
[2021-08-20] MEDS ORDERED: DEXTROSE 5%-WATER - 50 ML IVPB ONE (17:10)
[2021-08-20] MEDS: CEFTRIAXONE 1 GM in DEXTROSE 5%-WATER - 50 ML IVPB SCH (17:10)
[2021-08-20] MEDS: ATORVASTATIN CA 10 MG TABLET (FP) PO SCH (21:40)
[2021-08-20] MEDS: LIDOCAINE PATCH REMOVAL MC SCH (21:43)
[2021-08-21] MEDS: LEVOTHYROXINE NA 25 MCG TABLET (FP) PO SCH (06:37)
[2021-08-21] MEDS ORDERED: cefTRIAXone SODIUM 1 GM VIAL ONE (09:57)
[2021-08-21] MEDS ORDERED: DEXTROSE 5%-WATER - 50 ML IVPB ONE (09:57)
[2021-08-21] MEDS: PANTOPRAZOLE 40 MG TABLET PO SCH (10:07)
[2021-08-21] MEDS: amLODIPine BESYLATE 2.5 MG TABLET (FP) PO SCH (10:07)
[2021-08-21] MEDS: FUROSEMIDE 40 MG TABLET (FP) PO SCH (10:07)
[2021-08-21] MEDS: LISINOPRIL 20 MG TABLET PO SCH (10:07)
[2021-08-21] MEDS: LIDOCAINE 5% TOPICAL PATCH TP SCH (10:08)
[2021-08-21] MEDS: CEFTRIAXONE 1 GM in DEXTROSE 5%-WATER - 50 ML IVPB SCH (10:11)
[2021-08-21] MEDS: ATORVASTATIN CA 10 MG TABLET (FP) PO SCH (21:06)
[2021-08-21] MEDS: LIDOCAINE PATCH REMOVAL MC SCH (21:07)
[2021-08-22] MEDS: LEVOTHYROXINE NA 25 MCG TABLET (FP) PO SCH (06:15)
[2021-08-22] MEDS ORDERED: cefTRIAXone SODIUM 1 GM VIAL ONE (09:37)
[2021-08-22] MEDS ORDERED: DEXTROSE 5%-WATER - 50 ML IVPB ONE (09:37)
[2021-08-22] MEDS: FUROSEMIDE 40 MG TABLET (FP) PO SCH (09:45)
[2021-08-22] MEDS: PANTOPRAZOLE 40 MG TABLET PO SCH (09:45)
[2021-08-22] MEDS: LISINOPRIL 20 MG TABLET PO SCH (09:45)
[2021-08-22] MEDS: CEFTRIAXONE 1 GM in DEXTROSE 5%-WATER - 50 ML IVPB SCH (09:45)
[2021-08-22] MEDS: amLODIPine BESYLATE 2.5 MG TABLET (FP) PO SCH (09:45)
[2021-08-22] MEDS: LIDOCAINE 5% TOPICAL PATCH TP SCH (09:47)
[2021-08-22 10:04] LABS: EOS % 4.9 % (0-4.5); LYMPH % 29.9 % (8-40); MCH 21.6 pg (25.7-33.7); MEAN CELL VOLUME 69.7 fl (80-96); MONO % 12.1 % (3.8-10.2); NEUT % 51.1 % (42.8-82.8); PLATELET COUNT 169 10^3/uL (134-434); RBC 4.17 M/mm3 (3.60-5.2); RDW 19.3 % (11.6-15.6); WHITE BLOOD COUNT 5.3 K/mm3 (4.0-10.0)
[2021-08-22 10:21] LABS: ALBUMIN 3.6 g/dl (3.4-5.0); CALCIUM 9.1 mg/dL (8.5-10.1)
[2021-08-22 10:22] LABS: BLOOD UREA NITROGEN 27.9 mg/dL (7-18)
[2021-08-22 10:25] LABS: BILIRUBIN,TOTAL 0.5 mg/dL (0.2-1); TOT PROT 8.1 g/dl (6.4-8.2)
[2021-08-22] MEDS: ATORVASTATIN CA 10 MG TABLET (FP) PO SCH (21:50)
[2021-08-22] MEDS: LIDOCAINE PATCH REMOVAL MC SCH (21:50)
[2021-08-23] MEDS ORDERED: LEVOTHYROXINE NA 25 MCG TABLET (FP) PO SCH (07:00)
[2021-08-23] MEDS ORDERED: DEXTROSE 5%-WATER - 50 ML IVPB ONE (09:19)
[2021-08-23] MEDS ORDERED: cefTRIAXone SODIUM 1 GM VIAL ONE (09:19)
[2021-08-23] MEDS: PANTOPRAZOLE 40 MG TABLET PO SCH (09:30)
[2021-08-23] MEDS: FUROSEMIDE 40 MG TABLET (FP) PO SCH (09:30)
[2021-08-23] MEDS: LIDOCAINE 5% TOPICAL PATCH TP SCH (09:30)
[2021-08-23] MEDS: LISINOPRIL 20 MG TABLET PO SCH (09:30)
[2021-08-23] MEDS: CEFTRIAXONE 1 GM in DEXTROSE 5%-WATER - 50 ML IVPB SCH ×2 (09:31→09:52)
[2021-08-23] MEDS: amLODIPine BESYLATE 2.5 MG TABLET (FP) PO SCH (09:31)
[2021-08-23 10:04] LABS: BASO % 1.3 % (0-2.0); EOS % 2.8 % (0-4.5); HEMATOCRIT 28.6 % (32.4-45.2); LYMPH % 23.2 % (8-40); MCH 21.9 pg (25.7-33.7); MCHC 31.3 g/dl (32.0-36.0); MEAN CELL VOLUME 69.8 fl (80-96); MEAN PLT VOLUME 9.2 fl (7.5-11.1); MONO % 12.4 % (3.8-10.2); NEUT % 60.3 % (42.8-82.8); PLATELET COUNT 158 10^3/uL (134-434); RDW 19.3 % (11.6-15.6); WHITE BLOOD COUNT 5.2 K/mm3 (4.0-10.0)
[2021-08-23 10:26] LABS: CALCIUM 9.3 mg/dL (8.5-10.1)
[2021-08-23 10:27] LABS: ALBUMIN 3.7 g/dl (3.4-5.0); BLOOD UREA NITROGEN 28.2 mg/dL (7-18)
[2021-08-23 10:31] LABS: BILIRUBIN,TOTAL 0.5 mg/dL (0.2-1); TOT PROT 7.8 g/dl (6.4-8.2)
[2021-08-23 10:57] LABS: ANISOCYTOSIS 1+; PLATELET ESTIMATE ADEQUATE
[2021-08-23 11:09] VITALS: BP 137/59; PULSE 76; TEMP 97.6
== END 2021-08-23 13:00 | disposition home or self-care (01) | DRG 291 ==
LOC: JER 13:31 → JERBED 17:27 → J6S 23:19
PROVIDERS: ADMIT Hospitalist; ATTEND Family Medicine
DX: I11.0 Hypertensive heart disease with heart failure (principal); I50.33 Acute on chronic diastolic (congestive) heart failure; N39.0 Urinary tract infection, site not specified; E03.9 Hypothyroidism, unspecified; E78.5 Hyperlipidemia, unspecified; K21.9 Gastro-esophageal reflux disease without esophagitis; G47.33 Obstructive sleep apnea (adult) (pediatric); D64.9 Anemia, unspecified; F41.9 Anxiety disorder, unspecified; I45.10 Unspecified right bundle-branch block; R42 Dizziness and giddiness; Z68.31 Body mass index [BMI] 31.0-31.9, adult; E66.9 Obesity, unspecified; M81.0 Age-related osteoporosis without current pathological fracture; B95.1 Streptococcus, group B, as the cause of diseases classified elsewhere; Z88.0 Allergy status to penicillin
CPT/HCPCS: 36415; 71045-TC-FY; 80048; 80053; 81003; 82728; 83550; 83735; 83880; 84443; 84484; 85025; 85610; 85730; 86850; 86900; 86901; 87077; 87086; 93005; 93010; 97116-GP; 97161-GP; 99285-25; C9803-CS; U0003; U0005

== ENCOUNTER 2022-03-01 16:28 | Emergency (ER) | payer OTHER ==
[2022-03-01 16:38] VITALS: RESP 18; TEMP 97.7; BMI 29.2
[2022-03-01] MEDS ORDERED: ACETAMINOPHEN 325 MG TABLET (FP) PO ONE (19:17)
[2022-03-01] MEDS ORDERED: ACETAMINOPHEN 325 MG TABLET (FP) ONE (19:28)
[2022-03-01 21:46] VITALS: BP 128/76; PULSE 62
== END 2022-03-01 21:44 | disposition home or self-care (01) ==
LOC: JER 16:28
DX: M25.551 Pain in right hip (principal)
CPT/HCPCS: 72131-TC; 72170-TC-FY; 72192-TC; 73502-TC-RT-FY; 73562-TC-LT-FY; 99284-25

== ENCOUNTER 2022-04-05 10:30 | Day surgery (SDC) | payer OTHER ==
[2022-04-05] MEDS ORDERED: FERRIC CARBOXYMALTOSE 750 MG in SODIUM CHLORIDE 250 ML IVPB ONE (12:00)
[2022-04-05 14:27] VITALS: BP 138/51; PULSE 63; RESP 18; TEMP 98.4
== END 2022-04-05 12:55 | disposition home or self-care (01) ==
LOC: JCHEMO 10:30 → J7W 11:50 → JCHEMO 12:55
PROVIDERS: ATTEND Internal Medicine Hematology & Oncology
PROC: 3E033GC Introduction of Other Therapeutic Substance into Peripheral Vein, Percutaneous Approach (ICD-10-PCS; principal; 2022-04-05)
DX: D50.9 Iron deficiency anemia, unspecified (principal)
CPT/HCPCS: 96365; J1439

== ENCOUNTER 2022-04-12 12:00 | Day surgery (SDC) | payer OTHER ==
[~2022-04-12 12:00] MED LIST: FERRIC CARBOXYMALTOSE 750 MG in SODIUM CHLORIDE 250 ML IVPB ONE
[2022-04-12 15:50] VITALS: TEMP 97.6
[2022-04-12 15:53] VITALS: BP 111/44; PULSE 61; RESP 18
== END 2022-04-12 12:30 | disposition home or self-care (01) ==
LOC: JCHEMO 12:00
PROVIDERS: ATTEND Internal Medicine Hematology & Oncology
PROC: 3E033GC Introduction of Other Therapeutic Substance into Peripheral Vein, Percutaneous Approach (ICD-10-PCS; principal; 2022-04-12)
DX: D50.9 Iron deficiency anemia, unspecified (principal)
CPT/HCPCS: 96365; J1439